=== PATIENT | male | born 1985 | race Caucasian/White ===

== ENCOUNTER 2017-11-21 09:52 | Emergency (ER) | payer SELFPAY ==
[2017-11-21 10:10] VITALS: BP 131/80
[2017-11-21] MEDS ORDERED: Tetan/Diph/Pertus SYR(Tdap)* 0.5 ML SYR(BOOSTRIX) use SYR IM ONE (10:23)
--- NOTE | 2017-11-21 11:35 | RAD ---
INDICATION: Right hand pain, mostly at the thumb, after "hand caught between 2 pieces of equipment" COMPARISON: None. TECHNIQUE: 2 views of the right hand were obtained. FINDINGS: The adequately corticated bones are in normal alignment. No significant focal osseous abnormality or fracture is seen. Joint spaces appear maintained. IMPRESSION: Normal right hand radiograph. If the patient's symptoms persist, follow-up imaging is recommended.
--- NOTE | 2017-11-21 16:29 | UC ---
Bon Villanueva Angela, scribed for Randy Wilson MD on 11/21/17 at 1022 . Upper Extremity HPI - HPI Summary HPI Summary: This pt is a 31 y/o male presenting to [facility] c/o right thumb pain since yesterday. 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 Pt states he sustained a laceration on the right thumb. Today pt presents with increased pain on right thumb. Denies any other complaints. Pt is unsure of his last tetanus shot. - History of Current Complaint Chief Complaint: UCUpperExtremity Stated Complaint: THUMB INJURY Time Seen by Provider: 11/21/17 10:15 Hx Obtained From: Patient Onset/Duration: Lasting Days - 1, Still Present Severity Currently: Severe Pain Intensity: 8 Pain Scale Used: 0-10 Numeric Location Of Pain: Is Discrete @ - right thumb Character: Throbbing Aggravating Factor(s): Nothing Alleviating Factor(s): Nothing Associated Signs And Symptoms: Positive: Other - laceration on right thumb - Allergies/Home Medications Allergies/Adverse Reactions: Allergies Allergy/AdvReac Type Severity Reaction Status Date / Time No Known Allergies Allergy Verified 11/21/17 10:10 Home Medications: Home Medications Fluticasone NASAL SPRAY 50MCG* [Flonase NASAL SPRAY 50MCG*] 1 spray NASAL DAILY 11/21/17 [History Confirmed 11/21/17] PMH/Surg Hx/FS Hx/Imm Hx Other Endocrine History: DENIES: diabetes Other Cardiovascular History: DENIES: HTN - Surgical History Surgical History: None - Family History Known Family History: Negative: Cardiac Disease - Social History Alcohol Use: Daily Substance Use Type: None Smoking Status (MU): Never Smoked Tobacco Review of Systems Constitutional: Negative Skin: Other - laceration on right thumb Eyes: Negative ENT: Negative Respiratory: Negative Cardiovascular: Negative Gastrointestinal: Negative Genitourinary: Negative Motor: Negative Neurovascular: Negative Musculoskeletal: Other: - right thumb pain, right hand pain Neurological: Negative Psychological: Negative All Other Systems Reviewed And Are Negative: Yes Physical Exam - Summary Physical Exam Summary: VITAL SIGNS: Reviewed. GENERAL: Patient is a well-developed and nourished male who is lying comfortable in the stretcher. Patient is not in any acute respiratory distress. HEAD AND FACE: Normocephalic EYES: PERRLA, EOMI x 2. EARS: Hearing grossly intact. MOUTH: Oropharynx within normal limits. NECK: Supple, trachea is midline, no adenopathy, no JVD, no carotid bruit. CHEST: Symmetric, no tenderness at palpation LUNGS: Clear to auscultation bilaterally. No wheezing or crackles. CVS: Regular rate and rhythm, S1 and S2 present, no murmurs or gallops appreciated. ABDOMEN: Soft, non-tender. Bowel sounds are normal. No abdominal abnormal pulsations. EXTREMITIES: Full ROM in all major joints, no edema, no cyanosis or clubbing. RUE: small laceration on the ventral aspect of the right thumb, approximately 0.5 cm. There is tenderness to palpation. No erythema. Full ROM of right thumb. NEURO: Alert and oriented x 3. No acute neurological deficits. Speech is normal and follows commands. SKIN: Dry and warm. Triage Information Reviewed: Yes Vital Signs: Initial Vital Signs Temp 98 F 11/21/17 10:06 Pulse 85 11/21/17 10:06 Resp 16 11/21/17 10:06 BP 131/80 11/21/17 10:06 Pulse Ox 100 11/21/17 10:06 Vital Signs Reviewed: Yes Diagnostics - Radiology Right hand XR Xray Interpretation: No Acute Changes - IMPRESSION: Normal right hand radiograph. Dr. Wilson has reviewed this radiology report. Radiology Interpretation Completed By: Radiologist Re-Evaluation - Re-Evaluation First Eval Re-Evaluation Time: 10:52 Comment: I reviewed the XR result with the pt. He will be discharged home with strict return to ED instructions. Upper Extremity Course/Dx - Course Course Of Treatment: This pt is a 31 y/o male presenting to [facility] c/o right thumb pain since yesterday. 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 Pt states he sustained a laceration on the right thumb. Today pt presents with increased pain on right thumb. Denies any other complaints. Pt is unsure of his last tetanus shot. Right hand XR shows normal right hand radiograph. I have no suspicion for tenosynovitis. I will place the pt on antibiotics for his throbbing pain. He is instructed to follow up with his PCP in 2 days. If symptoms worsen pt is recommended to go to the ER to rule out tenosynovitis. Pt was also given a tetanus vaccine. I discussed the XR result with the patient. Plan of care was discussed with the patient, and pt understands and agrees. All questions were answered to patient satisfaction. There were no further complaints or concerns. Pt is hemodynamically stable, alert and oriented x3. The patient was found to have increased blood pressure in UC. The patient will follow up with PCP for better control of BP. - Differential Dx/Diagnosis Provider Diagnoses: Contusion. Laceration Discharge - Sign-Out/Discharge Documenting (check all that apply): Discharge/Admit/Transfer - Discharge - Discharge Plan Condition: Stable Disposition: HOME Prescriptions: Sulfamethox/Trimethoprim DS* [Bactrim DS 800/160 TAB*] 1 tab PO BID #20 tab Patient Education Materials: Laceration (ED), Contusion in Adults (ED) Forms: *Work Release Referrals: Mahamed Kebede MD [Primary Care Provider] - 2 Days Additional Instructions: Follow up with your primary care provider in 2 days. FOLLOW UP WITH YOUR PRIMARY CARE PROVIDER FOR HIGH BLOOD PRESSURE NOTED TODAY. RETURN TO URGENT CARE OR THE ED FOR ANY WORSENING OR NEW SYMPTOMS. The documentation as recorded by the Bon flores Angela accurately reflects the service I personally performed and the decisions made by me, Randy Wilson MD.
== END 2017-11-21 10:51 | disposition home or self-care (01) ==
LOC: UCEAST 09:52
DX: S60.011A Contusion of right thumb without damage to nail, initial encounter (principal); S61.011A Laceration without foreign body of right thumb without damage to nail, initial encounter; W30.89XA Contact with other specified agricultural machinery, initial encounter; Y93.9 Activity, unspecified; Y92.9 Unspecified place or not applicable; Z23 Encounter for immunization
CPT/HCPCS: 90715; 99212; G0463

== ENCOUNTER 2017-11-30 10:20 | Emergency (ER) | payer SELFPAY ==
[2017-11-30 10:51] VITALS: BP 128/77
--- NOTE | 2017-11-30 12:42 | UC ---
Skin Complaint HPI - HPI Summary HPI Summary: PATIENT IS ON DAY 9 OF 10 OF BACTRIM THAT WAS PRESCRIBED FOR INFECTION PROPHYLAXIS AFTER AN INJURY TO HIS RIGHT THUMB. HE HAD ONSET THIS MORNING OF AN ITCHY RED RASH THAT STARTED ON HIS ARMS AND HAS SPREAD TO THE REST OF HIS BODY. NO FEVER. HE DID HAVE SEVERAL EPISODES OF VOMITING TODAY. NO TONGUE OR LIP SWELLING OR RESPIRATORY INVOLVEMENT. TOOK 50MG BENADRYL ARMOR [employer]. - History of Current Complaint Chief Complaint: UCRas Time Seen by Provider: 11/30/17 12:06 Stated Complaint: RASH Hx Obtained From: Patient Onset/Duration: Sudden Onset, Lasting Hours, Still Present Timing: Constant Onset Severity: Moderate Current Severity: Moderate Pain Intensity: 0 Pain Scale Used: 0-10 Numeric Location: Diffuse Character: Pruritus, Hives, Redness Aggravating Factor(s): Touch Alleviating Factor(s): Nothing Associated Signs & Symptoms: Positive: Vomiting, Rash. Negative: Difficulty Breathing, Fever, Cough, Wheezing, Throat Tightening, Tenderness, Joint Swelling Related History: Recent change in medication - Allergy/Home Medications Allergies/Adverse Reactions: Allergies Allergy/AdvReac Type Severity Reaction Status Date / Time Sulfa (Sulfonamide Allergy Itching Verified 11/30/17 10:52 Antibiotics) Home Medications: Home Medications diphenhydrAMINE HCl [Benadryl Allergy 25 MG CAP] 50 mg PO 11/30/17 [History] Review of Systems Constitutional: Negative Skin: Rash Respiratory: Negative Cardiovascular: Negative Gastrointestinal: Vomiting All Other Systems Reviewed And Are Negative: Yes PMH/Surg Hx/FS Hx/Imm Hx Previously Healthy: Yes - Surgical History Surgical History: None - Family History Known Family History: Negative: Cardiac Disease, Hypertension - Social History Alcohol Use: Daily Substance Use Type: None Smoking Status (MU): Never Smoked Tobacco Physical Exam Triage Information Reviewed: Yes Appearance: Well-Appearing, No Pain Distress, Well-Nourished Vital Signs: Initial Vital Signs Temp 99.5 F 11/30/17 10:49 Pulse 98 11/30/17 10:49 Resp 18 11/30/17 10:49 BP 128/77 11/30/17 10:49 Pulse Ox 100 11/30/17 10:49 Vital Signs Reviewed: Yes Eyes: Positive: Conjunctiva Clear ENT: Positive: Hearing grossly normal, Pharynx normal, Other - NO TONGUE OR LIP SWELLING Neck: Positive: Supple, Nontender, No Lymphadenopathy Respiratory Exam: Normal Cardiovascular Exam: Normal Abdomen Description: Positive: Soft Musculoskeletal: Positive: No Edema Neurological: Positive: Alert Psychological: Positive: Age Appropriate Behavior Skin: Positive: Other - Diffuse maculopapular rash over face, neck, trunk, and upper and lower extremities. Course/Dx - Diagnoses Provider Diagnoses: HIVES - ADVERSE DRUG REACTION Discharge - Sign-Out/Discharge Documenting (check all that apply): Discharge/Admit/Transfer - Discharge Plan Condition: Stable Disposition: HOME Prescriptions: predniSONE TAB* [Deltasone TAB*] 40 mg PO DAILY #10 tab Triamcinolone 0.1% CREAM(NF) [Kenalog Cream 0.1%(NF)] 1 applic TOPICAL TID PRN # 1 tube PRN Reason: Itching Patient Education Materials: Urticaria (ED), Adverse Drug Reaction (ED) Forms: *Work Release Referrals: Mahamed Kebede MD [Primary Care Provider] - If Needed Additional Instructions: USE DAILY HYPOALLERGENIC MOISTURIZING LOTION. PREDNISONE DAILY FOR 5 DAYS. AVOID HEAT AND HOT WATER TAKE OTC ANTIHISTAMINE DAILY (CLARITIN (LORATADINE), ZYRTEC (CETIRIZINE) OR MAXIMINO (FEXOFENADINE) IN THE MORNING, 25-50MG BENADRYL AT NIGHT) DO NOT SCRATCH KEEP COOL, CLEAN AND DRY USE OTC TOPICAL STEROID CREAM SPARINGLY 2-3 TIMES DAILY ON ITCHY SPOTS NEEDED. KEEP AWAY FROM MUCOUS MEMBRANES. STOP THE BACTRIM AND DO NOT TAKE SULFA DRUGS IN THE FUTURE. - Billing Disposition and Condition Condition: STABLE Disposition: HOME
== END 2017-11-30 12:40 | disposition home or self-care (01) ==
LOC: UCEAST 10:20
DX: L50.0 Allergic urticaria (principal); R11.10 Vomiting, unspecified; T37.0X5A Adverse effect of sulfonamides, initial encounter; Y92.9 Unspecified place or not applicable
CPT/HCPCS: 99212; G0463